=== PATIENT | male | born 1960 | race Caucasian/White ===

== ENCOUNTER 2016-03-01 08:28 | Outpatient (CLI) | payer OTHER, BC ==
--- NOTE | 2016-03-01 10:33 | DIAGNOSTIC IMAGING REPORT ---
PROCEDURE: MR UPPER EXTREMITY W/O CONT-RT INDICATION: ACUTE PAIN RIGHT SHOULDER TECHNIQUE: PD and FAT-SAT PD, axial, and coronal-oblique images. PD and STIR sagittal-oblique images. COMPARISON: None. FINDINGS: Caudal angulation of type 2 acromion resulting in impingement. Tendinosis with 8 mm full-thickness insertional tear of the supraspinatus and infraspinatus tendons. Small associated seven by deltoid fluid collection. Abnormal signal of the superior labrum anteriorly suspicious for a tear. Rotator interval edema suggestive of a tear. Normal glenohumeral ligaments. Tendinosis of the long head of the bicipital tendon. Bones are unremarkable. IMPRESSION: 1. Caudal angulation of type 2 acromion resulting in impingement 2. Tendinosis with 8 mm full thickness insertional tear of the distal supraspinatus and infraspinatus tendons 3. Abnormal signal of the superior labrum anteriorly suspicious for a tear 4. Rotator interval edema suggestive of a tear 5. Tendinosis of the long head of the bicipital tendon
== END 2016-03-01 23:00 ==
LOC: MRI SRH 08:28
DX: M75.41 Impingement syndrome of right shoulder (principal); S46.811A Strain of other muscles, fascia and tendons at shoulder and upper arm level, right arm, initial encounter; M75.21 Bicipital tendinitis, right shoulder